=== PATIENT | male | born 1990 | race Caucasian/White ===

== ENCOUNTER → 2022-01-03 | Outpatient (CLI) | payer SELFPAY | LOC: LAB 10:31 | PROVIDERS: ATTEND Urology | DX: Z31.41 Encounter for fertility testing (principal) | CPT/HCPCS: 89321 ==

== ENCOUNTER → 2022-07-30 | Outpatient (CLI) | payer BC ==
--- NOTE | 2022-07-30 16:58 | Diagnostic Imaging Report ---
INDICATION: Low back pain. Three views of the lumbar spine were obtained. Curvature is normal. There is grade 1 spondylolisthesis of L4 on L5. There are likely pars defects at the L4-S1 level. There is also degenerative disc disease with disc space narrowing at L4-L5. Vertebral body heights are well-maintained. No fractures are seen. Remaining lumbar disc spaces are well-maintained. IMPRESSION: Grade 1 spondylolisthesis of L4 on L5 with probable bilateral pars defects at L4-L5. Dictated by: Dictated on workstation # [id number]
== END ==
LOC: RAD 09:16
PROVIDERS: ATTEND Family Medicine
DX: Z00.00 Encounter for general adult medical examination without abnormal findings (principal); M43.16 Spondylolisthesis, lumbar region
CPT/HCPCS: 72100